=== PATIENT | male | born 1960 | race Caucasian/White ===

== ENCOUNTER 2017-10-02 07:05 | Day surgery (SDC) | payer OTHER ==
[2016-10-20 09:50] VITALS: BMI 22.8
[2017-10-02 08:15] VITALS: O2SAT 100
[2017-10-02] MEDS ORDERED: Propofol 10 mg/ml Inj (20 ML) ONE (09:38)
--- NOTE | 2017-10-02 09:38 | CP.SDSHP ---
Same Day Surgery H & P - History Proposed Procedure: COLONSCOPY Pre-Op Diagnosis: SEE NOTES - Previous Medical/Surgical History Cardiac: Hypertension Endocrine/Metabolic: Diabetes, Other Neuro: Backaches Misc: Other Pain: 2.Mild Pain - Allergies Allergies: Allergies No Known Allergies Allergy (Verified 10/20/16 09:50) - Physical Exam General Appearance: N Vital Signs: Vital Signs 10/02/17 07:45 Temperature 97 F L Pulse Rate 67 Respiratory 19 Rate Blood Pressure 114/71 O2 Sat by Pulse 100 Oximetry Mental Status: Alert & Oriented x3 Neuro: WNL Heart: Other Lungs: WNL GI: WNL - {Optional Preform as Required} Breast: WNL Abdomen: WNL Rectal: WNL Integument: WNL : Other Ortho: Other ENT: WNL - Impression Pt. Evaluated Today:Candidate for Anesthesia & Procedure: Yes - Date & Time Time: 09:39 Short Stay Discharge - Short Stay Discharge Admitting Diagnosis/Reason for Visit: COLON SCREENING Disposition: HOME/ ROUTINE
[2017-10-02] MEDS ORDERED: Lactated Ringer's 500 ML IV SCH (09:45)
[2017-10-02] MEDS ORDERED: Belladonna-Phenobarbital PO ONE (10:15)
[2017-10-02 11:31] VITALS: BP 122/75; PULSE 55; RESP 15; TEMP 97.2
== END 2017-10-02 11:30 | disposition home or self-care (01) ==
LOC: C.ENDO 07:05
PROVIDERS: ATTEND Specialist
DX: K58.9 Irritable bowel syndrome, unspecified (principal); K64.8 Other hemorrhoids
CPT/HCPCS: 45380; 82948; 88305; J2704; J7120

== ENCOUNTER 2018-10-15 19:38 | Emergency (ER) | payer OTHER ==
[2018-10-15 19:38] VITALS: BMI 22.8
[2018-10-15 19:53] VITALS: BP 145/93; PULSE 69; TEMP 97.8; O2SAT 97
--- NOTE | 2018-10-15 21:01 | C.PDOC ---
History Of Present Illness 57 y/o male comes in to ED complaining of pain to right foot s/p fall earlier today. States that he injured his right second toe and has pain and swelling to the area. Denies any weakness, numbness, or other injuries. Time Seen by Provider: 10/15/18 19:53 Chief Complaint (Nursing): Lower Extremity Problem/Injury History Per: Patient History/Exam Limitations: no limitations Onset/Duration Of Symptoms: Hrs Current Symptoms Are (Timing): Still Present Past Medical History Reviewed: Historical Data, Nursing Documentation, Vital Signs Vital Signs: Last Vital Signs Temp 97.8 F 10/15/18 19:50 Pulse 69 10/15/18 19:50 Resp 18 10/15/18 19:50 BP 145/93 H 10/15/18 19:50 Pulse Ox 97 10/15/18 19:50 - Medical History PMH: Hypercholesterolemia Denies: Chronic Kidney Disease Family History: States: No Known Family Hx - Social History Hx Alcohol Use: No Hx Substance Use: No - Immunization History Hx Tetanus Toxoid Vaccination: No Hx Influenza Vaccination: No Hx Pneumococcal Vaccination: No Review Of Systems Except As Marked, All Systems Reviewed And Found Negative. Cardiovascular: Negative for: Chest Pain Respiratory: Negative for: Shortness of Breath Musculoskeletal: Positive for: Foot Pain (R). Negative for: Neck Pain Neurological: Negative for: Weakness, Numbness Physical Exam - Physical Exam Appears: Non-toxic, No Acute Distress Skin: Warm, Dry Head: Atraumatic, Normacephalic Eye(s): bilateral: Normal Inspection, PERRL Oral Mucosa: Moist Neck: Supple Respiratory: Normal Breath Sounds Extremity: Capillary Refill (less than 2 seconds), No Deformity, Other (Ecchymosis, swelling, and tenderness to right second toe; minimal tenderness to right third toe) Pulses: Right Dorsalis Pedis: Normal Neurological/Psych: Oriented x3, Normal Speech, Normal Motor, Normal Sensation Gait: Other (with a limp) ED Course And Treatment O2 Sat by Pulse Oximetry: 97 (RA) Pulse Ox Interpretation: Normal Progress Note: Right foot XR ordered. XR showed fracture of the PIP of second toe. Toes were darshan tapes and patient is placed in an orthopedic shoe for support and will follow up with podiatry for further evaluation. Disposition Counseled Patient/Family Regarding: Diagnosis, Need For Followup, Rx Given - Disposition Referrals: Podiatry Clinic [Outside] Disposition: HOME/ ROUTINE Disposition Time: 20:59 Condition: STABLE Additional Instructions: Leg elevation Apply ICE to area Follow up with PMD/ Podiatry Continue advil for pain Use ortho shoe for support Return to ER if worse Instructions: Toe Fracture (DC) Forms: [employer] (Slovak) - Clinical Impression Clinical Impression: Fracture of toe of right foot - PA / SUPERVISOR W[employer]OUR / Resident Statement MD/DO has reviewed & agrees with the documentation as recorded. - Scribe Statement The provider has reviewed the documentation as recorded by the Scribgail Elizabeth All medical record entries made by the Alanis were at my direction and personally dictated by me. I have reviewed the chart and agree that the record accurately reflects my personal performance of the history, physical exam, medical decision making, and the department course for this patient. I have also personally directed, reviewed, and agree with the discharge instructions and disposition.
[2018-10-15 21:05] VITALS: RESP 20
--- NOTE | 2018-10-16 10:59 | RAD ---
Date of service: 10/15/2018 PROCEDURE: Right Foot Radiographs. HISTORY: 2nd, 3rd toes pain and swelling COMPARISON: None. FINDINGS: BONES: No acute fracture or destructive bony lesion identified. JOINTS: Normal. SOFT TISSUES: Normal. OTHER FINDINGS: None. IMPRESSION: Unremarkable right foot radiographs.
== END 2018-10-15 21:05 | disposition home or self-care (01) ==
LOC: C.ER 19:38
DX: S92.511A Displaced fracture of proximal phalanx of right lesser toe(s), initial encounter for closed fracture (principal); W19.XXXA Unspecified fall, initial encounter; E78.00 Pure hypercholesterolemia, unspecified

== ENCOUNTER 2019-03-08 23:30 | Inpatient (IN) | payer OTHER ==
[2019-03-08 23:31] VITALS: BMI 22.8
--- NOTE | 2019-03-09 00:29 | C.PDOC ---
Time Seen by Provider: 03/09/19 00:21 Chief Complaint (Nursing): Fever Past Medical History Vital Signs: Last Vital Signs Temp 99.7 F H 03/08/19 23:58 Pulse 93 H 03/08/19 23:58 Resp 20 03/08/19 23:58 BP 136/76 03/08/19 23:58 Pulse Ox 95 03/08/19 23:58 Primary Care Provider: Doris Tran - Medical History PMH: Hypercholesterolemia Denies: Chronic Kidney Disease - Social History Hx Alcohol Use: No Hx Substance Use: No - Immunization History Hx Tetanus Toxoid Vaccination: No Hx Influenza Vaccination: Yes Hx Pneumococcal Vaccination: No ED Course And Treatment O2 Sat by Pulse Oximetry: 95 Disposition - Disposition
--- NOTE | 2019-03-09 00:34 | C.PDOC ---
History Of Present Illness Patient presents with fever, generalized body aches and dysuria for the last 36 hours. Pt is on amox for a sinus infection. No cp, palp, tolerating po. Time Seen by Provider: 03/09/19 00:21 Chief Complaint (Nursing): Fever History Per: Patient History/Exam Limitations: no limitations Onset/Duration Of Symptoms: Days Current Symptoms Are (Timing): Still Present Severity: Moderate Pain Scale Rating Of: 4 Reports Recently: Seen In ED, Treated By A Physician Recent travel outside of the [place]: No Additional History Per: Family Past Medical History Reviewed: Historical Data, Nursing Documentation, Vital Signs Vital Signs: Last Vital Signs Temp 99.7 F H 03/08/19 23:58 Pulse 93 H 03/08/19 23:58 Resp 20 03/08/19 23:58 BP 136/76 03/08/19 23:58 Pulse Ox 95 03/08/19 23:58 Primary Care Provider: Doris Tran - Medical History PMH: Hypercholesterolemia Denies: Chronic Kidney Disease Family History: States: No Known Family Hx - Social History Hx Alcohol Use: No Hx Substance Use: No - Immunization History Hx Tetanus Toxoid Vaccination: No Hx Influenza Vaccination: Yes Hx Pneumococcal Vaccination: No Review Of Systems Constitutional: Positive for: Fever, Malaise Cardiovascular: Negative for: Chest Pain Respiratory: Negative for: Shortness of Breath Gastrointestinal: Positive for: Abdominal Pain, Diarrhea. Negative for: Nausea, Vomiting Genitourinary: Positive for: Dysuria Musculoskeletal: Positive for: Back Pain (mild) Skin: Negative for: Rash Neurological: Negative for: Weakness Psych: Negative for: Anxiety Physical Exam - Physical Exam Appears: Non-toxic, Other (moderate distress) Skin: Warm, Dry Eye(s): bilateral: Normal Inspection Oral Mucosa: Dry Neck: Supple Chest: Symmetrical Cardiovascular: Rhythm Regular Respiratory: No Rales, No Rhonchi, No Wheezing Gastrointestinal/Abdominal: Soft, No Tenderness, No Distention Back: CVA Tenderness (mild left), No Vertebral Tenderness Male Genital: No Inguinal Tenderness Extremity: No Tenderness Extremity: Bilateral: Atraumatic Pulses: Left Dorsalis Pedis: Normal, Right Dorsalis Pedis: Normal Neurological/Psych: Oriented x3 Gait: Steady ED Course And Treatment - Laboratory Results Result Diagrams: 03/09/19 00:51 03/09/19 00:51 O2 Sat by Pulse Oximetry: 95 Pulse Ox Interpretation: Normal Disposition Discussed With Dr.: Doris Tran Comment: accepted the pt on his service and took over the care at 2:09 AM Doctor Will See Patient In The: Hospital Counseled Patient/Family Regarding: Studies Performed, Diagnosis - Disposition Disposition: HOSPITALIZED Disposition Time: 00:31 Condition: FAIR Forms: [facility] (Stateless) - POA Present On Arrival: Poor Glycemic Control - Clinical Impression Clinical Impression: Fever, Pyelonephritis Decision To Admit - Pt Status Changed To: Hospital Disposition Of: Observation - . Bed Request Type: Regular Admitting Physician: Doris Tran Patient Diagnosis: Fever, Pyelonephritis
[2019-03-09] MEDS: Sodium Chloride 0.9% 1,000 ML IV SCH ×4 (00:48→20:30)
[2019-03-09 00:55] LABS: BASO # 0.1 K/uL (0.0-0.2); BASO % 0.5 % (0.0-2.0); EOS # 0.1 K/uL (0.0-0.7); HEMOGLOBIN 13.5 g/dL (12.0-18.0); LYMPH # 0.7 K/uL (1.0-4.3); LYMPH % 6.5 % (20.0-40.0); MEAN CELL VOLUME 89.7 fL (80.0-94.0); MEAN CORPUSCULAR HEMOGLOBIN 30.7 pg (27.0-31.0); MEAN CORPUSCULAR HGB CONC 34.3 g/dL (33.0-37.0); MEAN PLATELET VOLUME 8.1 fL (7.2-11.7); MONO # 0.9 K/uL (0.0-0.8); MONO % 9.2 % (0.0-10.0); NEUT # 8.4 K/uL (1.8-7.0); NEUT % 82.8 % (50.0-75.0); PLATELET COUNT 275 K/uL (130-400); RBC 4.38 Mil/uL (4.40-5.90); RED CELL DISTRIBUTION WIDTH 13.5 % (11.5-14.5); WHITE BLOOD COUNT 10.2 K/uL (4.8-10.8)
[2019-03-09 01:01] LABS: URINE BILIRUBIN NEGATIVE (NEGATIVE); URINE BLOOD 2+ (NEGATIVE); URINE CLARITY Clear (Clear); URINE COLOR Straw (YELLOW); URINE GLUCOSE (UA) 3+ mg/dL (Normal); URINE LEUKOCYTE ESTERASE 1+ Leu/uL (Negative); URINE PROTEIN NEGATIVE (NEGATIVE); URINE UROBILINOGEN NORMAL mg/dL (0.2-1.0)
[2019-03-09 01:10] LABS: VENOUS BLOOD GAS BASE EXCESS -0.6 mmol/L (0.0-2.0); VENOUS BLOOD GAS PCO2 35 mmHg (40-60); VENOUS BLOOD GAS PO2 74 mm/Hg (30-55); VENOUS BLOOD PH 7.43 (7.32-7.43)
[2019-03-09] MEDS ORDERED: Sodium Chloride 0.9% 2,000 ML IV ONE (01:10)
[2019-03-09] MEDS ORDERED: cefTRIAXone IV 1 gm in Dextros 50 ML IVPB ONE (01:10)
[2019-03-09 01:14] LABS: ALB/GLOB RATIO 1.5 (1.0-2.1); ALBUMIN 4.1 g/dL (3.5-5.0); ALT/SGPT 50 U/L (21-72); AST/SGOT 56 U/L (17-59); BLOOD UREA NITROGEN 9 mg/dL (9-20); CALCIUM 9.4 mg/dl (8.6-10.4); GFR NON-AFRICAN AMERICAN > 60
[2019-03-09 01:56] LABS: EOSINOPHIL 2 % (0-4); LYMPHOCYTE 5 % (20-40); MONOCYTE 8 % (0-10); NEUTROPHIL 83 % (50-75); PLATELET ESTIMATE NORMAL (NORMAL); REACTIVE LYMPHOCYTES 2 % (0-0); TOTAL CELLS COUNTED 100
--- NOTE | 2019-03-09 09:38 | CP.PCM.HP ---
"<Basim Mercado - Last Filed: 03/09/19 17:35> History of Present Illness - History of Present Illness History of Present Illness: 58 year old male with a past medical history of diabetes, hypertension and bph presents to the hospital after reporting a fever since last Sunday. Patient states the Tmax was 102F while at home. Patient also reports body aches with nasal congestion in conjunction with the symptoms. Patient has history of Sinusitis and recently completed a course of antibiotics for the infection. Patient also reports dysuria for the past couple of days as well. Patient denies any recent travel, nausea, vomiting, syncopal episodes, palpitations, chest pain, or any other complaints. PMD: Marc Medical history: dm, htn, bph Allergies: Denies Surgical history: Sinus surgery Social history: Denies etoh or tobacco use. Denies illicit drug use Present on Admission - Present on Admission Any Indicators Present on Admission: No Review of Systems - Constitutional Constitutional: Headache. absent: Daytime Sleepiness, Frequent Falls, Night Sweats, Weakness - EENT Eyes: absent: Blurred Vision, Discharge Ears: absent: Ear Discharge, Dizziness Nose/Mouth/Throat: Nasal Congestion, Nasal Discharge. absent: Nose Pain, Bleeding Gums, Halitosis, Mouth Pain - Cardiovascular Cardiovascular: absent: Chest Pain, Claudication, Irregular Heart Rhythm, Leg Edema, Palpitations, Slow Heart Rate, Syncope - Respiratory Respiratory: absent: Cough, Dyspnea, Snoring - Gastrointestinal Gastrointestinal: absent: Belching, Bloating, Dyspepsia, Dysphagia, Melena, Nausea - Genitourinary Genitourinary: absent: Change in Urinary Stream, Pyuria, Nocturia, Freq UTI - Integumentary Integumentary: absent: Pruritus, Rash, Sores, Striae, Swelling - Neurological Neurological: absent: Syncope, Tremor, Vertigo, Weakness - Psychiatric Psychiatric: absent: Depression, Panic Attacks - Endocrine Endocrine: absent: Increase in Ring/Shoe/Hat Size, Polydipsia, Polyphagia, Polyuria - Hematologic/Lymphatic Hematologic: absent: Easy Bleeding, Easy Bruising Past Patient History - Past Medical History & Family History Past Medical History?: Yes - Past Social History Smoking Status: Never Smoked - CARDIAC Hx Hypercholesterolemia: Yes - PULMONARY Hx Respiratory Disorders: No - NEUROLOGICAL Hx Neurological Disorder: No - HEENT Hx HEENT Problems: Yes - RENAL Hx Chronic Kidney Disease: No - ENDOCRINE/METABOLIC Hx Endocrine Disorders: Yes Hx Diabetes Mellitus Type 1: Yes - HEMATOLOGICAL/ONCOLOGICAL Hx Blood Disorders: No - INTEGUMENTARY Hx Dermatological Problems: No - MUSCULOSKELETAL/RHEUMATOLOGICAL Hx Musculoskeletal Disorders: Yes Hx Herniated Disk: Yes (L4 L5) - GASTROINTESTINAL Hx Gastrointestinal Disorders: No - GENITOURINARY/GYNECOLOGICAL Hx Genitourinary Disorders: Yes Hx Prostate Problems: Yes (BPH) - PSYCHIATRIC Hx Substance Use: No - SURGICAL HISTORY Hx Surgeries: Yes Other/Comment: ENT 2011 - ANESTHESIA Hx Anesthesia: Yes Hx Anesthesia Reactions: No Hx Malignant Hyperthermia: No Meds Allergies/Adverse Reactions: Allergies Allergy/AdvReac Type Severity Reaction Status Date / Time No Known Allergies Allergy Verified 10/15/18 19:48 Physical Exam - Head Exam Head Exam: ATRAUMATIC, NORMAL INSPECTION - Eye Exam Eye Exam: EOMI, Normal appearance, PERRL. absent: Periorbital tenderness Pupil Exam: NORMAL ACCOMODATION, PERRL. absent: Irregular, Unequal - ENT Exam ENT Exam: Mucous Membranes Moist, Normal Oropharynx - Neck Exam Neck exam: Positive for: Normal Inspection. Negative for: Lymphadenopathy, Thyromegaly - Respiratory Exam Respiratory Exam: Clear to Auscultation Bilateral, NORMAL BREATHING PATTERN. absent: Prolonged Expiratory Phase, Respiratory Distress - Cardiovascular Exam Cardiovascular Exam: REGULAR RHYTHM, RRR, +S1, +S2. absent: Rubs - GI/Abdominal Exam GI & Abdominal Exam: Normal Bowel Sounds, Soft. absent: Organomegaly, Tenderness - Extremities Exam Extremities exam: Positive for: normal inspection. Negative for: full ROM, joint swelling, pedal edema - Back Exam Back exam: NORMAL INSPECTION. absent: CVA tenderness (R), paraspinal tenderness - Neurological Exam Neurological exam: Alert, CN II-XII Intact, Oriented x3 - Psychiatric Exam Psychiatric exam: Normal Affect, Normal Mood - Skin Skin Exam: Dry, Intact, Normal Color - Additional Findings Additional findings: Maxillary tenderness to palpation Results - Vital Signs Recent Vital Signs: Last Vital Signs Temp 98.8 F 03/09/19 02:58 Pulse 71 03/09/19 02:58 Resp 20 03/09/19 02:58 BP 131/77 03/09/19 02:58 Pulse Ox 97 03/09/19 02:58 - Labs Result Diagrams: 03/09/19 00:51 03/09/19 00:51 Labs: Laboratory Results - last 24 hr 03/09/19 03/09/19 03/09/19 00:08 00:51 00:51 WBC 10.2 RBC 4.38 L Hgb 13.5 Hct 39.3 MCV 89.7 MCH 30.7 MCHC 34.3 RDW 13.5 Plt Count 275 MPV 8.1 Neut % (Auto) 82.8 H Lymph % (Auto) 6.5 L Teller % (Auto) 9.2 Eos % (Auto) 1.0 Baso % (Auto) 0.5 Neut # (Auto) 8.4 H Lymph # (Auto) 0.7 L Teller # (Auto) 0.9 H Eos # (Auto) 0.1 Baso # (Auto) 0.1 Neutrophils % (Manual) 83 H Lymphocytes % (Manual) 5 L Reactive Lymphs % 2 H Monocytes % (Manual) 8 Eosinophils % (Manual) 2 Platelet Estimate Normal pO2 VBG pH VBG pCO2 VBG HCO3 VBG Total CO2 VBG O2 Sat (Calc) VBG Base Excess VBG Potassium Glucose Lactate Sodium Potassium Chloride Carbon Dioxide Anion Gap BUN Creatinine Est GFR ( Amer) Est GFR (Non-Af Amer) POC Glucose (mg/dL) 279 H Random Glucose Calcium Total Bilirubin AST ALT Alkaline Phosphatase Total Protein Albumin Globulin Albumin/Globulin Ratio Venous Blood Potassium Urine Color Straw Urine Clarity Clear Urine pH 6.0 Ur Specific [place] 1.007 Urine Protein Negative Urine Glucose (UA) 3+ H Urine Ketones Negative Urine Blood 2+ H Urine Nitrate Negative Urine Bilirubin Negative Urine Urobilinogen Normal Ur Leukocyte Esterase 1+ H Urine WBC (Auto) 14 H Urine RBC (Auto) 3 03/09/19 03/09/19 03/09/19 00:51 01:05 06:47 WBC RBC Hgb Hct MCV MCH MCHC RDW Plt Count MPV Neut % (Auto) Lymph % (Auto) Teller % (Auto) Eos % (Auto) Baso % (Auto) Neut # (Auto) Lymph # (Auto) Teller # (Auto) Eos # (Auto) Baso # (Auto) Neutrophils % (Manual) Lymphocytes % (Manual) Reactive Lymphs % Monocytes % (Manual) Eosinophils % (Manual) Platelet Estimate pO2 74 H VBG pH 7.43 VBG pCO2 35 L VBG HCO3 24.4 VBG Total CO2 24.3 VBG O2 Sat (Calc) 97.6 H VBG Base Excess -0.6 L VBG Potassium 3.7 Glucose 268 H Lactate 2.7 H Sodium 135 135.0 Potassium 4.1 Chloride 99 101.0 Carbon Dioxide 22 Anion Gap 18 BUN 9 Creatinine 0.7 L Est GFR ( Amer) > 60 Est GFR (Non-Af Amer) > 60 POC Glucose (mg/dL) 183 H Random Glucose 276 H Calcium 9.4 Total Bilirubin 0.4 AST 56 ALT 50 Alkaline Phosphatase 102 Total Protein 6.9 Albumin 4.1 Globulin 2.7 Albumin/Globulin Ratio 1.5 Venous Blood Potassium 3.7 Urine Color Urine Clarity Urine pH Ur Specific [place] Urine Protein Urine Glucose (UA) Urine Ketones Urine Blood Urine Nitrate Urine Bilirubin Urine Urobilinogen Ur Leukocyte Esterase Urine WBC (Auto) Urine RBC (Auto) Assessment & Plan - Assessment and Plan (Free Text) Assessment: 58 year old male with a past medical history of diabetes, hypertension and bph presents to the hospital after reporting a fever since last Sunday. Plan: 1.Pyelonephritis U/A on admission: 2+Blood| 1+Leukocyte esterase |14 WBC Medications: Rocephin 1gm IVP DAILY Acetaminophen 650mg PO Q6 PRN 2.hx of Hypertension -Continue Losartan 50mg PO DAILY 3.hx of Diabetes -Hold home medications -ISS -Accuchecks ACHS 4.BPH -Continue Flomax .4mg PO DAILY -Continue Proscar 5MG po daily 5.Painless hematuria -Abdomen/pelvis ordered. Will f/u with results -Urology Dr. Anastacio West ordered--> Help appreciated. PPX Heparin ci | SCD's Plan discussed with Attending Dr. Esteban Mercado, PGY2 <Radha Orellana - Last Filed: 03/10/19 18:46> Results - Vital Signs Recent Vital Signs: Last Vital Signs Temp 98.7 F 03/10/19 15:00 Pulse 74 03/10/19 15:00 Resp 20 03/10/19 15:00 BP 146/80 03/10/19 15:00 Pulse Ox 97 03/10/19 15:00 - Labs Result Diagrams: 03/10/19 08:07 03/10/19 08:07 Labs: Laboratory Results - last 24 hr 03/09/19 03/10/19 03/10/19 21:38 06:29 08:07 WBC 7.3 RBC 4.24 L Hgb 13.2 Hct 37.4 MCV 88.2 MCH 31.0 MCHC 35.1 RDW 13.2 Plt Count 316 MPV 7.9 Neut % (Auto) 75.2 H Lymph % (Auto) 10.9 L Teller % (Auto) 11.9 H Eos % (Auto) 1.7 Baso % (Auto) 0.3 Neut # (Auto) 5.5 Lymph # (Auto) 0.8 L Teller # (Auto) 0.9 H Eos # (Auto) 0.1 Baso # (Auto) 0.0 Sodium Potassium Chloride Carbon Dioxide Anion Gap BUN Creatinine Est GFR ( Amer) Est GFR (Non-Af Amer) POC Glucose (mg/dL) 256 H 215 H Random Glucose Calcium Phosphorus Magnesium Total Bilirubin AST ALT Alkaline Phosphatase Total Protein Albumin Globulin Albumin/Globulin Ratio Urine Color Urine Clarity Urine pH Ur Specific [place] Urine Protein Urine Glucose (UA) Urine Ketones Urine Blood Urine Nitrate Urine Bilirubin Urine Urobilinogen Ur Leukocyte Esterase Urine WBC (Auto) Urine RBC (Auto) Urine Bacteria 03/10/19 03/10/19 03/10/19 08:07 11:47 13:51 WBC RBC Hgb Hct MCV MCH MCHC RDW Plt Count MPV Neut % (Auto) Lymph % (Auto) Teller % (Auto) Eos % (Auto) Baso % (Auto) Neut # (Auto) Lymph # (Auto) Teller # (Auto) Eos # (Auto) Baso # (Auto) Sodium 136 Potassium 3.4 L Chloride 100 Carbon Dioxide 26 Anion Gap 13 BUN 6 L Creatinine 0.7 L Est GFR ( Amer) > 60 Est GFR (Non-Af Amer) > 60 POC Glucose (mg/dL) 211 H Random Glucose 204 H D Calcium 8.8 Phosphorus 2.8 Magnesium 1.8 Total Bilirubin 0.4 AST 28 ALT 41 Alkaline Phosphatase 82 Total Protein 6.8 Albumin 3.7 Globulin 3.1 Albumin/Globulin Ratio 1.2 Urine Color Yellow Urine Clarity Clear Urine pH 6.0 Ur Specific [place] 1.008 Urine Protein Negative Urine Glucose (UA) 1+ H Urine Ketones Negative Urine Blood 2+ H Urine Nitrate Negative Urine Bilirubin Negative Urine Urobilinogen Normal Ur Leukocyte Esterase Neg Urine WBC (Auto) 2 Urine RBC (Auto) 4 H Urine Bacteria Rare 03/10/19 16:39 WBC RBC Hgb Hct MCV MCH MCHC RDW Plt Count MPV Neut % (Auto) Lymph % (Auto) Teller % (Auto) Eos % (Auto) Baso % (Auto) Neut # (Auto) Lymph # (Auto) Teller # (Auto) Eos # (Auto) Baso # (Auto) Sodium Potassium Chloride Carbon Dioxide Anion Gap BUN Creatinine Est GFR ( Amer) Est GFR (Non-Af Amer) POC Glucose (mg/dL) 216 H Random Glucose Calcium Phosphorus Magnesium Total Bilirubin AST ALT Alkaline Phosphatase Total Protein Albumin Globulin Albumin/Globulin Ratio Urine Color Urine Clarity Urine pH Ur Specific [place] Urine Protein Urine Glucose (UA) Urine Ketones Urine Blood Urine Nitrate Urine Bilirubin Urine Urobilinogen Ur Leukocyte Esterase Urine WBC (Auto) Urine RBC (Auto) Urine Bacteria Attending/Attestation - Attestation I have personally seen and examined this patient.: Yes I have fully participated in the care of the patient.: Yes I have reviewed all pertinent clinical information: Yes Notes (Text): 1.Fever monitor tem,do cultures 2.Flank pain radiates to groin possible UTI/Pyelo 3.Painless hematuria r/o kidney stone,do CT abdomen and pelvis 3.Chronic sinusitis 4.BPH 5.DM 6HTN"
[2019-03-09] MEDS ORDERED: Glucagon Recombinant 1 mg Inj IM PRN (09:39)
[2019-03-09] MEDS ORDERED: Dextrose 50% SYRINGE Inj (50 ml) IV PRN (09:39)
[2019-03-09] MEDS: (Novolin R) Insulin Human Regular 100 units/ml vial SC SCH ×3 (11:33→22:17)
--- NOTE | 2019-03-09 15:33 | CT ---
Date of service: 03/09/2019 PROCEDURE: CT Abdomen and Pelvis without intravenous contrast HISTORY: painless hematuria COMPARISON: None. TECHNIQUE: Axial and reformatted coronal and sagittal CT images of the abdomen and pelvis were obtained without IV or oral contrast administration.. Contrast dose: 0 Radiation dose: Total exam DLP = 306.63 mGy-cm. This CT exam was performed using one or more of the following dose reduction techniques: Automated exposure control, adjustment of the mA and/or kV according to patient size, and/or use of iterative reconstruction technique. FINDINGS: LOWER THORAX: No evidence of acute pathology LIVER: Mild hepatomegaly is noted. GALLBLADDER AND BILE DUCTS: Unremarkable. PANCREAS: Unremarkable. No gross lesion or ductal dilatation. SPLEEN: Unremarkable. ADRENALS: There is 2.1 centimeter slightly heterogeneous low-attenuation solid nodule at the left adrenal gland may represent incidental adenoma. KIDNEYS AND URETERS: Unremarkable. No hydronephrosis. No solid mass. VASCULATURE: Unremarkable. No aortic aneurysm. No aortic atherosclerotic calcification or mural plaque present. BOWEL: Unremarkable. No obstruction. No gross mural thickening. APPENDIX: No evidence of appendicitis. PERITONEUM: Unremarkable. No free fluid. No free air. LYMPH NODES: Unremarkable. No enlarged lymph nodes. BLADDER: [id number] circumferential urinary bladder wall thickening is noted. REPRODUCTIVE: The prostate is moderately enlarged. BONES: No acute fracture. OTHER FINDINGS: None. IMPRESSION: No evidence of nephrolithiasis or hydronephrosis. Mild to moderate circumferential urinary bladder wall thickening. Moderately enlarged prostate. 2.1 centimeter low-attenuation nodule/mass at the left adrenal gland may represent incidental adenoma. If indicated further evaluation by MRI may be obtained.
[2019-03-09] MEDS ORDERED: Home Med 1 UNIT PO PRN (20:02)
--- NOTE | 2019-03-09 20:03 | CP.PCM.PCO ---
Addendum Addendum: 03/09/19 20:02 Pt taking home med: Tylenol sinus Headache OK for use while inpatient [facility] PGY1
[2019-03-09] MEDS: guaiFENesin 600 mg ER Tab PO SCH (21:18)
[2019-03-10 08:24] LABS: BASO % 0.3 % (0.0-2.0); EOS # 0.1 K/uL (0.0-0.7); EOS % 1.7 % (0.0-4.0); HEMOGLOBIN 13.2 g/dL (12.0-18.0); LYMPH # 0.8 K/uL (1.0-4.3); LYMPH % 10.9 % (20.0-40.0); MEAN CELL VOLUME 88.2 fL (80.0-94.0); MEAN CORPUSCULAR HGB CONC 35.1 g/dL (33.0-37.0); MEAN PLATELET VOLUME 7.9 fL (7.2-11.7); MONO # 0.9 K/uL (0.0-0.8); MONO % 11.9 % (0.0-10.0); NEUT # 5.5 K/uL (1.8-7.0); NEUT % 75.2 % (50.0-75.0); RBC 4.24 Mil/uL (4.40-5.90); RED CELL DISTRIBUTION WIDTH 13.2 % (11.5-14.5); WHITE BLOOD COUNT 7.3 K/uL (4.8-10.8)
[2019-03-10] MEDS: (Novolin R) Insulin Human Regular 100 units/ml vial SC SCH ×4 (08:25→21:10)
--- NOTE | 2019-03-10 08:29 | CP.PCM.PN ---
Subjective - Date & Time of Evaluation Date of Evaluation: 03/10/19 Time of Evaluation: 08:29 Objective - Vital Signs/Intake and Output Vital Signs (last 24 hours): Temp Pulse Resp BP Pulse Ox 99.5 F 71 20 160/81 H 95 03/09/19 23:25 03/09/19 23:25 03/09/19 23:25 03/09/19 23:25 03/09/19 23:25 Intake and Output: 03/10/19 03/10/19 06:59 18:59 Intake Total 1950 Balance 1950 - Medications Medications: Current Medications Acetaminophen (Tylenol 325mg Tab) 650 mg PO Q6 PRN PRN Reason: Headache Last Admin: 03/09/19 21:16 Dose: 650 mg Dextrose (Dextrose 50% Inj) 0 ml IV STAT PRN; Protocol PRN Reason: Hypoglycemia Protocol Dextrose (Glutose 15) 0 gm PO ONCE PRN; Protocol PRN Reason: Hypoglycemia Protocol Finasteride (Proscar) 5 mg PO DAILY [facility] Glucagon (Glucagen Diagnostic Kit) 0 mg IM STAT PRN; Protocol PRN Reason: Hypoglycemia Protocol Guaifenesin (Mucinex La) 600 mg PO BID [facility] Last Admin: 03/09/19 21:18 Dose: 600 mg Sodium Chloride (Sodium Chloride 0.9%) 1,000 mls @ 100 mls/hr IV .Q10H [facility] Last Admin: 03/09/19 20:30 Dose: Not Given Ceftriaxone Sodium 1 gm/ (Sodium Chloride) 100 mls @ 100 mls/hr IVPB DAILY [facility]; Protocol Last Admin: 03/09/19 10:50 Dose: 100 mls/hr Dextrose (Dextrose 5% In Water 1000 Ml) 1,000 mls @ 0 mls/hr IV .Q0M PRN; Protocol PRN Reason: Hypoglycemia Protocol Insulin Human Regular (Novolin R) 0 unit SC ACHS [facility]; Protocol Last Admin: 03/10/19 08:25 Dose: 2 units Losartan Potassium (Cozaar) 25 mg PO DAILY [facility] Last Admin: 03/09/19 10:49 Dose: 25 mg Pneumococcal Polyvalent Vaccine (Pneumovax 23 Vaccine) 0.5 ml IM .ONCE ONE Stop: 03/11/19 10:01 Pseudoephedrine HCl (Sudafed Tab) 30 mg PO HS PRN PRN Reason: Headache Last Admin: 03/09/19 21:18 Dose: 30 mg Tamsulosin HCl (Flomax) 0.4 mg PO DAILY [facility] Last Admin: 03/09/19 09:45 Dose: 0.4 mg - Labs Labs: 03/10/19 08:07 03/09/19 00:51 APTT 29.7 SECONDS (21-34) 03/09/19 13:36
[2019-03-10 08:57] LABS: ALB/GLOB RATIO 1.2 (1.0-2.1); ALBUMIN 3.7 g/dL (3.5-5.0); ALT/SGPT 41 U/L (21-72); AST/SGOT 28 U/L (17-59); BLOOD UREA NITROGEN 6 mg/dL (9-20); CALCIUM 8.8 mg/dl (8.6-10.4); GFR NON-AFRICAN AMERICAN > 60
[2019-03-10] MEDS: guaiFENesin 600 mg ER Tab PO SCH ×2 (09:36→17:13)
[2019-03-10] MEDS ORDERED: Moxifloxacin IV 400mg/250ml NS 400 MG/250 ML BAG IVPB SCH (12:15)
[2019-03-10] MEDS ORDERED: Potassium Chloride 20 mEq ER Tab PO ONE (13:00)
[2019-03-10 14:02] LABS: URINE BACTERIA RARE (<OCC); URINE BILIRUBIN NEGATIVE (NEGATIVE); URINE BLOOD 2+ (NEGATIVE); URINE CLARITY Clear (Clear); URINE COLOR Yellow (YELLOW); URINE GLUCOSE (UA) 1+ mg/dL (Normal); URINE LEUKOCYTE ESTERASE NEG Leu/uL (Negative); URINE PROTEIN NEGATIVE (NEGATIVE); URINE UROBILINOGEN NORMAL mg/dL (0.2-1.0)
[2019-03-10] MEDS: Sodium Chloride 0.9% 1,000 ML IV SCH ×3 (14:04→16:30)
--- NOTE | 2019-03-10 15:41 | CP.PCM.PN ---
"Subjective - Date & Time of Evaluation Date of Evaluation: 03/10/19 Time of Evaluation: 16:00 - Subjective Subjective: Seen and examined this afternoon. His main concer today afternoon is left groin pain radiates to his left scrotum and left scrotal tenderness His sinus pain is better,c/o Dysuria,last night fever. Objective - Vital Signs/Intake and Output Vital Signs (last 24 hours): Temp Pulse Resp BP Pulse Ox 99.1 F 82 20 155/85 H 95 03/10/19 08:36 03/10/19 08:36 03/10/19 08:36 03/10/19 08:36 03/10/19 08:36 Intake and Output: 03/10/19 03/10/19 06:59 18:59 Intake Total 1950 830 Balance 1950 830 - Medications Medications: Current Medications Acetaminophen (Tylenol 325mg Tab) 650 mg PO Q6 PRN PRN Reason: Headache Last Admin: 03/10/19 09:40 Dose: 650 mg Dextrose (Dextrose 50% Inj) 0 ml IV STAT PRN; Protocol PRN Reason: Hypoglycemia Protocol Dextrose (Glutose 15) 0 gm PO ONCE PRN; Protocol PRN Reason: Hypoglycemia Protocol Finasteride (Proscar) 5 mg PO DAILY [facility] Last Admin: 03/10/19 09:36 Dose: 5 mg Glucagon (Glucagen Diagnostic Kit) 0 mg IM STAT PRN; Protocol PRN Reason: Hypoglycemia Protocol Guaifenesin (Mucinex La) 600 mg PO BID [facility] Last Admin: 03/10/19 09:36 Dose: 600 mg Sodium Chloride (Sodium Chloride 0.9%) 1,000 mls @ 100 mls/hr IV .Q10H [facility] Last Admin: 03/10/19 14:18 Dose: Not Given Dextrose (Dextrose 5% In Water 1000 Ml) 1,000 mls @ 0 mls/hr IV .Q0M PRN; Protocol PRN Reason: Hypoglycemia Protocol Moxifloxacin HCl (Avelox Iv 400mg/250ml Ns) 400 mg in 250 mls @ 167 mls/hr IVPB Q24H [facility]; Protocol Last Admin: 03/10/19 14:01 Dose: 167 mls/hr Insulin Human Regular (Novolin R) 0 unit SC ACHS [facility]; Protocol Last Admin: 03/10/19 12:34 Dose: 2 units Losartan Potassium (Cozaar) 25 mg PO DAILY [facility] Last Admin: 03/10/19 09:37 Dose: 25 mg Pneumococcal Polyvalent Vaccine (Pneumovax 23 Vaccine) 0.5 ml IM .ONCE ONE Stop: 03/11/19 10:01 Pseudoephedrine HCl (Sudafed Tab) 30 mg PO Q6 PRN PRN Reason: Headache Tamsulosin HCl (Flomax) 0.4 mg PO DAILY [facility] Last Admin: 03/10/19 09:36 Dose: 0.4 mg - Labs Labs: 03/10/19 08:07 03/10/19 08:07 APTT 29.7 SECONDS (21-34) 03/09/19 13:36 - Constitutional Appears: Non-toxic, No Acute Distress - Head Exam Head Exam: NORMAL INSPECTION - Eye Exam Eye Exam: Normal appearance - ENT Exam ENT Exam: Mucous Membranes Moist - Neck Exam Neck Exam: Full ROM - Respiratory Exam Respiratory Exam: Clear to Ausculation Bilateral, NORMAL BREATHING PATTERN - Cardiovascular Exam Cardiovascular Exam: REGULAR RHYTHM - GI/Abdominal Exam GI & Abdominal Exam: Soft, Normal Bowel Sounds - Exam Exam: Testicular Tenderness. absent: Uretheral Discharge, Bladder Distension - Extremities Exam Extremities Exam: Full ROM - Back Exam Back Exam: NORMAL INSPECTION - Neurological Exam Neurological Exam: Awake, Oriented x3 - Psychiatric Exam Psychiatric exam: Normal Mood - Skin Skin Exam: Dry, Intact Assessment and Plan - Assessment and Plan (Free Text) Assessment: 58 year old male with a past medical history of diabetes, hypertension and bph presents to the hospital after reporting a fever since last Sunday. He was complaining of dysuria and sinus trouble on admission. Patient was started on ceftriaxone .urine culture was taken. patient had sinus trouble for a long time with history of allergies. Had sinus surgery by DR Mace as year ago. He also follows urologist Dr Eastuded out pt. His urine culture is negative for significant colony count.UA without nitrates one plus Leukocyte esterase. patient had fever spike last night and blood culture was drawn. His sinus trouble is better. Today he is complaining of left srotal pain,pain radiating from groin to his scrotum and also complaining of dysuria. Has left scrotal tenderness on palpation,no significant swelling on exam Plan: 1.Fever Unlikey from UTI, Possible acute on chronic sinusitis or due to acute epididymitis Patient has hematuria-CT abdpelvis without acute pathology except bladder wall thickening U/A on admission: 2+Blood| 1+Leukocyte esterase |14 WBC Rocephin 1gm IVP DAILY d/c today and started on avelox Acetaminophen 650mg PO Q6 PRN patient's urologist was consulted Dr Puri . 2.Acute Epididymitis/left scrotal pain no signs of torsion or tumor,likely Epididymitis pain meds,follow blood culture,continue avelox 3.Sinusitis follow CT sinus,continue Avelox ENT consult pending 4.hx of Hypertension -Continue Losartan 50mg PO DAILY 5.hx of Diabetes -Hold home medications -ISS -Accuchecks ACHS 6.BPH -Continue Flomax .4mg PO DAILY -Continue Proscar 5MG po daily 7.Herpetic lesion zovirex topical 7.Painless hematuria Urologist on board. Dr Puri. He did went through this pt's records and recommend to follow him out patient after discharge"
[2019-03-10] MEDS: Potassium Chloride 20 mEq ER Tab PO SCH (17:13)
[2019-03-10] MEDS: Acyclovir 5% Oint (15 gm) EXT SCH ×2 (17:14→19:13)
--- NOTE | 2019-03-10 17:57 | CT ---
Date of service: 03/10/2019 PROCEDURE: CT SINUSES WITHOUT CONTRAST HISTORY: s/p sinus surgery, hx sinusitis, headache COMPARISON: None available. TECHNIQUE: Contiguous axial CT images of the paranasal sinuses were obtained. Coronal and sagittal reformats were generated. Radiation dose: Total exam DLP = 680.39 mGy-cm. This CT exam was performed using one or more of the following dose reduction techniques: Automated exposure control, adjustment of the mA and/or kV according to patient size, and/or use of iterative reconstruction technique. FINDINGS: FRONTAL SINUSES: No evidence of significant mucosal thickening. ETHMOID SINUSES: Mild mucosal thickening noted. SPHENOID SINUSES: Mild mucosal thickening noted MAXILLARY SINUSES: Mild mucosal thickening more prominent on the left side. There is mucosal retention cyst in the left maxillary sinus measures 1.4 x 0.9 centimeter. The patient is status post bilateral maxillary sinus surgery. SINUS DRAINAGE: Osteomeatal complexes, frontal recesses and sphenoethmoid recesses clear. NASAL SEPTUM: No significant deviation. No destructive lesion. There are bilateral gail bullosa seen. MASS: None. SKULL BASE: Unremarkable. TEMPORAL BONES: Middle ears and mastoid grossly unremarkable. OTHER FINDINGS: None. IMPRESSION: Mild sinuses mucosal thickening. No evidence of air-fluid level in the sinuses. Post surgical changes suggestive of prior sinusitis surgery.
--- NOTE | 2019-03-10 19:25 | US ---
Date of service: 03/10/2019 HISTORY: left testicular pain TECHNIQUE: Realtime sonography through the scrotum with color and doppler flow. COMPARISON: None Available. FINDINGS: RIGHT TESTICLE: Measures 5 x 2.7 x 2.7 cm. Normal echotexture and flow. RIGHT EPIDIDYMIS: Epididymal head measures 0.8 x 1 x 1 cm. Grossly unremarkable appearance with normal flow. LEFT TESTICLE: Measures 5 x 3 x 3.2 cm. Heterogeneous echotexture and hyperemia noted in the left testicle. LEFT EPIDIDYMIS: Epididymal head measures 2.2 x 1.2 x 3.4 cm. Diffuse enlargement of left epididymis noted. There is 0.3 x 0.4 centimeter cyst left epididymal head. There is hyperemia noted in the left epididymis. HYDROCELE: Moderate to large amount of left-sided hydrocele noted. There is also small to moderate complex right hydrocele is seen. VARICOCELE: Mild left-sided varicocele. OTHER FINDINGS: There are bilateral tubular ectasia of rete testis noted. IMPRESSION: Complex bilateral hydroceles. Mild enlargement of left epididymis and hyperemia noted in the left epididymis and left testicle. Findings suspicious for orchitis epididymitis. Mild left-sided varicocele . bilateral tubular ectasia of rete testis.
[2019-03-10] MEDS ORDERED: (Lantus) Insulin Glargine, Recombinant SC ONE (19:50)
[2019-03-10] MEDS: Ciprofloxacin 400mg/200ml D5W 400 MG/200 ML BAG IVPB SCH (20:16)
[2019-03-11] MEDS: Acyclovir 5% Oint (15 gm) EXT SCH ×9 (00:12→22:17)
[2019-03-11] MEDS: Sodium Chloride 0.9% 1,000 ML IV SCH ×3 (02:31→19:53)
[2019-03-11 07:19] LABS: BASO % 0.5 % (0.0-2.0); EOS # 0.2 K/uL (0.0-0.7); EOS % 3.8 % (0.0-4.0); HEMOGLOBIN 12.4 g/dL (12.0-18.0); MEAN CELL VOLUME 86.8 fL (80.0-94.0); MEAN CORPUSCULAR HEMOGLOBIN 30.6 pg (27.0-31.0); MEAN CORPUSCULAR HGB CONC 35.3 g/dL (33.0-37.0); MEAN PLATELET VOLUME 7.5 fL (7.2-11.7); MONO # 0.9 K/uL (0.0-0.8); MONO % 15.8 % (0.0-10.0); NEUT # 3.8 K/uL (1.8-7.0); NEUT % 62.9 % (50.0-75.0); NRBC % 0.1 % (0.0-2.0); RBC 4.04 Mil/uL (4.40-5.90); RED CELL DISTRIBUTION WIDTH 12.9 % (11.5-14.5)
[2019-03-11 07:39] LABS: ALB/GLOB RATIO 1.3 (1.0-2.1); ALBUMIN 3.4 g/dL (3.5-5.0); ALT/SGPT 39 U/L (21-72); AST/SGOT 29 U/L (17-59); BLOOD UREA NITROGEN 6 mg/dL (9-20); CALCIUM 8.2 mg/dl (8.6-10.4); GFR NON-AFRICAN AMERICAN > 60
[2019-03-11] MEDS: (Novolin R) Insulin Human Regular 100 units/ml vial SC SCH ×4 (07:51→22:07)
[2019-03-11] MEDS: Ciprofloxacin 400mg/200ml D5W 400 MG/200 ML BAG IVPB SCH ×2 (08:03→19:51)
--- NOTE | 2019-03-11 08:25 | CP.PCM.PN ---
<To Lauren - Last Filed: 03/11/19 14:06> Subjective - Date & Time of Evaluation Date of Evaluation: 03/11/19 Time of Evaluation: 10:00 - Subjective Subjective: PGY1 Medicine progress note for Dr. May covering for Dr. Tran Pt seen and examined at bedside. Pt resting comfortably. No acute complaints. Fever of 101.2 overnight. Pt endorses improvement of testicular pain and swelling since starting IV antibiotics. Pt also reports resolution of abdominal pain. Denies fever, chills, chest pain, sob, abdominal pain , n/v/d, penile discharge, glans tenderness/pain. Pt states that his burning on urination has improved from a 10/10 to a 2/10. Objective - Vital Signs/Intake and Output Vital Signs (last 24 hours): Temp Pulse Resp BP Pulse Ox 98.6 F 57 L 20 143/76 96 03/10/19 23:35 03/10/19 23:35 03/10/19 23:35 03/10/19 23:35 03/10/19 23:35 Intake and Output: 03/11/19 03/11/19 06:59 18:59 Intake Total 800 Balance 800 - Medications Medications: Current Medications Acetaminophen (Tylenol 325mg Tab) 650 mg PO Q6 PRN PRN Reason: Headache Last Admin: 03/10/19 19:47 Dose: 650 mg Acyclovir (Zovirax 5% Oint) 0 gm EXT Q3H [facility] Last Admin: 03/11/19 07:54 Dose: 1 applic Dextrose (Dextrose 50% Inj) 0 ml IV STAT PRN; Protocol PRN Reason: Hypoglycemia Protocol Dextrose (Glutose 15) 0 gm PO ONCE PRN; Protocol PRN Reason: Hypoglycemia Protocol Finasteride (Proscar) 5 mg PO DAILY [facility] Last Admin: 03/10/19 09:36 Dose: 5 mg Glucagon (Glucagen Diagnostic Kit) 0 mg IM STAT PRN; Protocol PRN Reason: Hypoglycemia Protocol Guaifenesin (Mucinex La) 600 mg PO BID [facility] Last Admin: 03/10/19 17:13 Dose: 600 mg Sodium Chloride (Sodium Chloride 0.9%) 1,000 mls @ 100 mls/hr IV .Q10H [facility] Last Admin: 03/11/19 02:31 Dose: Not Given Dextrose (Dextrose 5% In Water 1000 Ml) 1,000 mls @ 0 mls/hr IV .Q0M PRN; Protocol PRN Reason: Hypoglycemia Protocol Ciprofloxacin (Cipro 400mg/200ml Dsw) 400 mg in 200 mls @ 133 mls/hr IVPB Q12H [facility]; Protocol Last Admin: 03/11/19 08:03 Dose: 133 mls/hr Insulin Human Regular (Novolin R) 0 unit SC ACHS [facility]; Protocol Last Admin: 03/11/19 07:51 Dose: 1 units Losartan Potassium (Cozaar) 25 mg PO DAILY [facility] Last Admin: 03/10/19 09:37 Dose: 25 mg Phenazopyridine HCl (Pyridium) 200 mg PO TIDPC PRN PRN Reason: Pain, moderate (4-7) Stop: 03/11/19 20:00 Pneumococcal Polyvalent Vaccine (Pneumovax 23 Vaccine) 0.5 ml IM .ONCE ONE Stop: 03/11/19 10:01 Potassium Chloride (K-Dur 20 Meq Er Tab) 20 meq PO BID [facility] Last Admin: 03/10/19 17:13 Dose: 20 meq Pseudoephedrine HCl (Sudafed Tab) 30 mg PO Q6 PRN PRN Reason: Headache Tamsulosin HCl (Flomax) 0.4 mg PO DAILY [facility] Last Admin: 03/10/19 09:36 Dose: 0.4 mg - Labs Labs: 03/11/19 07:09 03/11/19 07:09 APTT 29.7 SECONDS (21-34) 03/09/19 13:36 - Constitutional Appears: Non-toxic, No Acute Distress - Head Exam Head Exam: ATRAUMATIC, NORMAL INSPECTION - Eye Exam Eye Exam: EOMI, Normal appearance - ENT Exam ENT Exam: Mucous Membranes Moist Additional comments: (+) ulceration to the right upper lip - Respiratory Exam Respiratory Exam: Clear to Ausculation Bilateral. absent: Rales, Rhonchi, Wheezes, Respiratory Distress, Stridor - Cardiovascular Exam Cardiovascular Exam: REGULAR RHYTHM, +S1, +S2. absent: Tachycardia - GI/Abdominal Exam GI & Abdominal Exam: Soft, Normal Bowel Sounds. absent: Distended, Firm, Guarding, Rigid, Tenderness - Exam Exam: Circumcision, Scrotal Swelling (left sided), Testicular Tenderness (minimal left sided testicular tenderness on palpation). absent: Uretheral Discharge, Testicular Vertical Lie - Extremities Exam Extremities Exam: Normal Capillary Refill, Normal Inspection. absent: Calf Tenderness, Pedal Edema - Back Exam Back Exam: NORMAL INSPECTION. absent: CVA tenderness (L), CVA tenderness (R) - Neurological Exam Neurological Exam: Alert, Awake - Psychiatric Exam Psychiatric exam: Normal Affect, Normal Mood - Skin Skin Exam: Dry, Normal Color, Warm Assessment and Plan (1) Epididymitis Assessment & Plan: Testicular US shows complex bilateral hydroceles. Mild enlargment of the left epididymis and hyperemia noted in the left epididymis and left testicle. Mild left sided varicocele. Bilateral tubular ectasia of rete testis. Abdomina CT shows no evidence of nephrolithiasis or hydronehprosis. Mild to moderate circumferential urinary bladder wall thickening. Moderately enlarged prostate. Incidental left renal adenoma. Continue ciprofloxacin 400 mg IVPB q12h Pyridium 200 mg PO TIDPC PRN Tylenol PRN fever/pain Urine culture negative Blood culture negative to date HIV 1/2 Ab is negative F/u Gonorrhea/Chlamydia Status: Acute (2) Sinusitis Assessment & Plan: Sinus CT shows sinuses mocsal thickening. No evidence of air-fluid level in the sinuses. Post surgical changes suggestive of prior sinusitis surgery. Mucinex 600 mg PO BID Sudafed 30 mg PO q[address] Chance, ENT, consulted. Status: Chronic (3) HTN (hypertension) Assessment & Plan: Losartan 25 mg PO daily Normotensive, continue to monitor Status: Chronic (4) Diabetes Assessment & Plan: Home meds held Hypoglycemia protocol RISS Accucheck ACHS Status: Chronic (5) BPH (benign prostatic hyperplasia) Assessment & Plan: Finasteride 5 mg PO QD Tamsulosin 0.4 mg PO QD Status: Chronic (6) Lip ulcer Assessment & Plan: Zovirax topical Status: Acute (7) Prophylactic measure Assessment & Plan: NO indication for GI ppx Pt ambulatory, SCDs, no indication for chemical VTE Lactobacillus Case discussed with Dr. Yadira Lauren PGY1 Status: Acute <Leno May - Last Filed: 03/11/19 15:36> Objective - Vital Signs/Intake and Output Vital Signs (last 24 hours): Temp Pulse Resp BP Pulse Ox 98.0 F 57 L 20 143/77 96 03/11/19 08:22 03/11/19 08:22 03/11/19 08:22 03/11/19 08:22 03/11/19 08:22 Intake and Output: 03/11/19 03/11/19 06:59 18:59 Intake Total 800 Balance 800 - Medications Medications: Current Medications Acetaminophen (Tylenol 325mg Tab) 650 mg PO Q6 PRN PRN Reason: Headache Last Admin: 03/10/19 19:47 Dose: 650 mg Acyclovir (Zovirax 5% Oint) 0 gm EXT Q3H [facility] Last Admin: 03/11/19 13:58 Dose: 1 applic Dextrose (Dextrose 50% Inj) 0 ml IV STAT PRN; Protocol PRN Reason: Hypoglycemia Protocol Dextrose (Glutose 15) 0 gm PO ONCE PRN; Protocol PRN Reason: Hypoglycemia Protocol Finasteride (Proscar) 5 mg PO DAILY [facility] Last Admin: 03/11/19 09:50 Dose: 5 mg Glucagon (Glucagen Diagnostic Kit) 0 mg IM STAT PRN; Protocol PRN Reason: Hypoglycemia Protocol Guaifenesin (Mucinex La) 600 mg PO BID [facility] Last Admin: 03/11/19 09:50 Dose: 600 mg Sodium Chloride (Sodium Chloride 0.9%) 1,000 mls @ 100 mls/hr IV .Q10H [facility] Last Admin: 03/11/19 13:57 Dose: Not Given Dextrose (Dextrose 5% In Water 1000 Ml) 1,000 mls @ 0 mls/hr IV .Q0M PRN; Protocol PRN Reason: Hypoglycemia Protocol Ciprofloxacin (Cipro 400mg/200ml Dsw) 400 mg in 200 mls @ 133 mls/hr IVPB Q12H [facility]; Protocol Last Admin: 03/11/19 08:03 Dose: 133 mls/hr Insulin Human Regular (Novolin R) 0 unit SC ACHS [facility]; Protocol Last Admin: 03/11/19 11:53 Dose: 3 units Lactobacillus Acidophilus (Lactobacillus) 1 cap PO BID [facility] Losartan Potassium (Cozaar) 25 mg PO DAILY [facility] Last Admin: 03/11/19 09:50 Dose: 25 mg Phenazopyridine HCl (Pyridium) 200 mg PO TIDPC PRN PRN Reason: Pain, moderate (4-7) Stop: 03/11/19 20:00 Pneumococcal Polyvalent Vaccine (Pneumovax 23 Vaccine) 0.5 ml IM .ONCE ONE Stop: 03/13/19 10:01 Potassium Chloride (K-Dur 20 Meq Er Tab) 20 meq PO BID [facility] Last Admin: 03/11/19 09:51 Dose: 20 meq Pseudoephedrine HCl (Sudafed Tab) 30 mg PO Q6 PRN PRN Reason: Headache Tamsulosin HCl (Flomax) 0.4 mg PO DAILY [facility] Last Admin: 03/11/19 09:51 Dose: 0.4 mg - Labs Labs: 03/11/19 07:09 03/11/19 07:09 APTT 29.7 SECONDS (21-34) 03/09/19 13:36 Attending/Attestation - Attestation I have personally seen and examined this patient.: Yes I have fully participated in the care of the patient.: Yes I have reviewed all pertinent clinical information, including history, physical exam and plan: Yes Notes (Text): 03/11/19 15:30 Medical attending: Patient was seen and examined by me. Agree with the above note by the resident The patient reports he has had a lot of improvment of the pain espeically when walking around there is much less Left scrotal pain. Pending urine culture and also pending GC Chlymydia as well Leno May
[2019-03-11] MEDS: guaiFENesin 600 mg ER Tab PO SCH ×3 (09:50→17:31)
[2019-03-11] MEDS: Potassium Chloride 20 mEq ER Tab PO SCH ×2 (09:51→17:31)
[2019-03-11] MEDS ORDERED: Pneumococcal 23-Valent Vaccine IM ONE (10:00)
[2019-03-11] MEDS ORDERED: Potassium Chloride 20 mEq ER Tab PO ONE (12:12)
[2019-03-11] MEDS: Lactobacillus Acidophilus 500 MU Cap PO SCH (17:30)
--- NOTE | 2019-03-11 19:30 | CON ---
DATE: 03/11/2019 REASON FOR CONSULTATION: Nasal congestion. HISTORY OF PRESENT ILLNESS: This is a 58-year-old male, well known to me, who is status post sinus surgery, complains of nasal congestion, constant, mild to moderate in intensity, mostly on the right. Mild postnasal discharge and mild headache. PAST MEDICAL HISTORY: As noted in chart by me. MEDICATIONS: As noted in chart by me. ALLERGIES: NOTED IN THE CHART BY ME. PHYSICAL EXAMINATION: HEAD: Atraumatic, normocephalic. FACE: Good facial movements bilaterally. CONSTITUTIONAL: Well fed, well nourished. COMMUNICATION: Communicates well and appropriately. EXTERNAL NOSE AND EARS: No masses, no lesions, no erythema, no edema. INTERNAL NOSE: Deviated septum mildly. There is some erythema and edema of the mucosa. ORAL CAVITY AND OROPHARYNX: No masses. No lesions. No erythema. No edema. LIPS AND GUMS: No masses. No lesions. No erythema. No edema. NECK: Supple. THYROID: No thyromegaly. No goiter. LYMPH NODES: No lymphadenopathy of the neck. ASSESSMENT: 1. Sinusitis. 2. Nasal congestion. PLAN: The patient to followup as an outpatient and we will schedule for sinus surgery as an outpatient. I reviewed the CAT scan, which revealed sinusitis. Moises Chance MD
[2019-03-12] MEDS: Sodium Chloride 0.9% 1,000 ML IV SCH
[2019-03-12] MEDS: Acyclovir 5% Oint (15 gm) EXT SCH ×5 (00:44→14:35)
[2019-03-12 07:26] LABS: BASO % 0.5 % (0.0-2.0); EOS # 0.3 K/uL (0.0-0.7); EOS % 5.2 % (0.0-4.0); HEMOGLOBIN 13.5 g/dL (12.0-18.0); LYMPH # 1.1 K/uL (1.0-4.3); LYMPH % 22.8 % (20.0-40.0); MEAN CELL VOLUME 87.1 fL (80.0-94.0); MEAN CORPUSCULAR HEMOGLOBIN 31.1 pg (27.0-31.0); MEAN CORPUSCULAR HGB CONC 35.7 g/dL (33.0-37.0); MONO # 0.8 K/uL (0.0-0.8); MONO % 16.7 % (0.0-10.0); NEUT # 2.8 K/uL (1.8-7.0); NEUT % 54.8 % (50.0-75.0); NRBC % 0.2 % (0.0-2.0); RBC 4.34 Mil/uL (4.40-5.90); RED CELL DISTRIBUTION WIDTH 13.3 % (11.5-14.5); WHITE BLOOD COUNT 5.1 K/uL (4.8-10.8)
[2019-03-12 07:48] LABS: ALB/GLOB RATIO 1.2 (1.0-2.1); ALBUMIN 3.8 g/dL (3.5-5.0); ALT/SGPT 43 U/L (21-72); AST/SGOT 31 U/L (17-59); BLOOD UREA NITROGEN 5 mg/dL (9-20); CALCIUM 8.9 mg/dl (8.6-10.4); GFR NON-AFRICAN AMERICAN > 60
[2019-03-12] MEDS: (Novolin R) Insulin Human Regular 100 units/ml vial SC SCH ×2 (08:07→12:17)
[2019-03-12] MEDS: Ciprofloxacin 400mg/200ml D5W 400 MG/200 ML BAG IVPB SCH (08:08)
[2019-03-12] MEDS: Potassium Chloride 20 mEq ER Tab PO SCH (09:10)
[2019-03-12] MEDS: guaiFENesin 600 mg ER Tab PO SCH (09:10)
[2019-03-12] MEDS: Lactobacillus Acidophilus 500 MU Cap PO SCH (09:10)
--- NOTE | 2019-03-12 13:22 | CP.PCM.PN ---
Objective - Vital Signs/Intake and Output Vital Signs (last 24 hours): Temp Pulse Resp BP Pulse Ox 98.1 F 76 20 146/88 95 03/12/19 08:20 03/12/19 08:20 03/12/19 08:20 03/12/19 08:20 03/12/19 08:20 Intake and Output: 03/12/19 03/12/19 06:59 18:59 Intake Total 1400 Output Total 1600 Balance -200 - Medications Medications: Current Medications Acetaminophen (Tylenol 325mg Tab) 650 mg PO Q6 PRN PRN Reason: Headache Last Admin: 03/10/19 19:47 Dose: 650 mg Acyclovir (Zovirax 5% Oint) 0 gm EXT Q3H [facility] Last Admin: 03/12/19 11:18 Dose: 1 applic Dextrose (Dextrose 50% Inj) 0 ml IV STAT PRN; Protocol PRN Reason: Hypoglycemia Protocol Dextrose (Glutose 15) 0 gm PO ONCE PRN; Protocol PRN Reason: Hypoglycemia Protocol Doxycycline Hyclate (Doryx) 100 mg PO Q12H [facility]; Protocol Stop: 03/21/19 22:46 Last Admin: 03/12/19 13:13 Dose: 100 mg Finasteride (Proscar) 5 mg PO DAILY [facility] Last Admin: 03/12/19 09:10 Dose: 5 mg Glucagon (Glucagen Diagnostic Kit) 0 mg IM STAT PRN; Protocol PRN Reason: Hypoglycemia Protocol Guaifenesin (Mucinex La) 600 mg PO BID [facility] Last Admin: 03/12/19 09:10 Dose: 600 mg Dextrose (Dextrose 5% In Water 1000 Ml) 1,000 mls @ 0 mls/hr IV .Q0M PRN; Protocol PRN Reason: Hypoglycemia Protocol Ciprofloxacin (Cipro 400mg/200ml Dsw) 400 mg in 200 mls @ 133 mls/hr IVPB Q12H [facility]; Protocol Last Admin: 03/12/19 08:08 Dose: 133 mls/hr Insulin Human Regular (Novolin R) 0 unit SC ACHS [facility]; Protocol Last Admin: 03/12/19 12:17 Dose: 3 units Lactobacillus Acidophilus (Lactobacillus) 1 cap PO BID [facility] Last Admin: 03/12/19 09:10 Dose: 1 cap Losartan Potassium (Cozaar) 25 mg PO DAILY [facility] Last Admin: 03/12/19 09:10 Dose: 25 mg Pneumococcal Polyvalent Vaccine (Pneumovax 23 Vaccine) 0.5 ml IM .ONCE ONE Stop: 03/13/19 10:01 Potassium Chloride (K-Dur 20 Meq Er Tab) 20 meq PO BID [facility] Last Admin: 03/12/19 09:10 Dose: 20 meq Pseudoephedrine HCl (Sudafed Tab) 30 mg PO Q6 PRN PRN Reason: Headache Last Admin: 03/12/19 09:09 Dose: 30 mg Tamsulosin HCl (Flomax) 0.4 mg PO DAILY [facility] Last Admin: 03/12/19 09:10 Dose: 0.4 mg - Labs Labs: 03/12/19 07:17 03/12/19 07:17 APTT 29.7 SECONDS (21-34) 03/09/19 13:36 Assessment and Plan (1) Epididymitis Status: Acute (2) Sinusitis Status: Chronic (3) HTN (hypertension) Status: Chronic (4) Diabetes Status: Chronic (5) BPH (benign prostatic hyperplasia) Status: Chronic (6) Lip ulcer Status: Acute (7) Prophylactic measure Status: Acute
--- NOTE | 2019-03-12 15:50 | CP.PCM.DIS ---
<To Lauren - Last Filed: 03/12/19 18:26> Provider - Provider Date of Admission: 03/11/19 13:28 Attending physician: Doris Tran MD Consults: 03/10/19 09:02 Otolaryngology Consult Routine Consulting Provider: Moises Chance Consulting Physician: Moises Chance Reason for Consult: hx sinusitis s/p sinus surgery 03/10/19 11:36 Physician Consult Routine Comment: Consulting Provider: Mykel Puri Consulting Physician: Mkyel Puri Reason for Consult: painless Hematuria and bladder wall thickness Additional Comments: patient's urologist Time Spent in preparation of Discharge (in minutes): 35 Diagnosis - Discharge Diagnosis (1) Epididymitis Status: Acute (2) Sinusitis Status: Chronic (3) HTN (hypertension) Status: Chronic (4) Diabetes Status: Chronic (5) BPH (benign prostatic hyperplasia) Status: Chronic (6) Lip ulcer Status: Acute (7) Prophylactic measure Status: Acute Hospital Course - Lab Results Lab Results: Micro Results 03/10/19 01:20 Blood Blood Culture - Preliminary NO GROWTH AFTER 48 HOURS 03/10/19 01:20 Blood Blood Culture - Preliminary NO GROWTH AFTER 48 HOURS 03/09/19 00:51 Urine Random Urine Culture - Final No Growth (<1,000 CFU/ML) Most Recent Lab Values WBC 5.1 K/uL (4.8-10.8) 03/12/19 07:17 RBC 4.34 Mil/uL (4.40-5.90) L 03/12/19 07:17 Hgb 13.5 g/dL (12.0-18.0) 03/12/19 07:17 Hct 37.8 % (35.0-51.0) 03/12/19 07:17 MCV 87.1 fL (80.0-94.0) 03/12/19 07:17 MCH 31.1 pg (27.0-31.0) H 03/12/19 07:17 MCHC 35.7 g/dL (33.0-37.0) 03/12/19 07:17 RDW 13.3 % (11.5-14.5) 03/12/19 07:17 Plt Count 404 K/uL (130-400) H 03/12/19 07:17 MPV 7.0 fL (7.2-11.7) L 03/12/19 07:17 Neut % (Auto) 54.8 % (50.0-75.0) 03/12/19 07:17 Lymph % (Auto) 22.8 % (20.0-40.0) 03/12/19 07:17 [place] % (Auto) 16.7 % (0.0-10.0) H 03/12/19 07:17 Eos % (Auto) 5.2 % (0.0-4.0) H 03/12/19 07:17 Baso % (Auto) 0.5 % (0.0-2.0) 03/12/19 07:17 Neut # (Auto) 2.8 K/uL (1.8-7.0) 03/12/19 07:17 Lymph # (Auto) 1.1 K/uL (1.0-4.3) 03/12/19 07:17 [place] # (Auto) 0.8 K/uL (0.0-0.8) 03/12/19 07:17 Eos # (Auto) 0.3 K/uL (0.0-0.7) 03/12/19 07:17 Baso # (Auto) 0.0 K/uL (0.0-0.2) 03/12/19 07:17 Neutrophils % (Manual) 83 % (50-75) H 03/09/19 00:51 Lymphocytes % (Manual) 5 % (20-40) L 03/09/19 00:51 Reactive Lymphs % 2 % (0-0) H 03/09/19 00:51 Monocytes % (Manual) 8 % (0-10) 03/09/19 00:51 Eosinophils % (Manual) 2 % (0-4) 03/09/19 00:51 Platelet Estimate Normal (NORMAL) 03/09/19 00:51 APTT 29.7 SECONDS (21-34) 03/09/19 13:36 pO2 74 mm/Hg (30-55) H 03/09/19 01:05 VBG pH 7.43 (7.32-7.43) 03/09/19 01:05 VBG pCO2 35 mmHg (40-60) L 03/09/19 01:05 VBG HCO3 24.4 mmol/L 03/09/19 01:05 VBG Total CO2 24.3 mmol/L (22-28) 03/09/19 01:05 VBG O2 Sat (Calc) 97.6 % (40-65) H 03/09/19 01:05 VBG Base Excess -0.6 mmol/L (0.0-2.0) L 03/09/19 01:05 VBG Potassium 3.7 mmol/L (3.6-5.2) 03/09/19 01:05 Sodium 135.0 mmol/l (132-148) 03/09/19 01:05 Chloride 101.0 mmol/L (98-107) 03/09/19 01:05 Glucose 268 mg/dl (75-110) H 03/09/19 01:05 Lactate 2.7 mmol/L (0.7-2.1) H 03/09/19 01:05 Sodium 138 mmol/L (132-148) 03/12/19 07:17 Potassium 3.8 mmol/L (3.6-5.2) 03/12/19 07:17 Chloride 102 mmol/L (98-107) 03/12/19 07:17 Carbon Dioxide 27 mmol/L (22-30) 03/12/19 07:17 Anion Gap 13 (10-20) 03/12/19 07:17 BUN 5 mg/dL (9-20) L 03/12/19 07:17 Creatinine 0.8 mg/dL (0.8-1.5) 03/12/19 07:17 Est GFR ( Amer) > 60 03/12/19 07:17 Est GFR (Non-Af Amer) > 60 03/12/19 07:17 POC Glucose (mg/dL) 218 mg/dL (65-110) H 03/12/19 06:40 Random Glucose 203 mg/dL (75-110) H 03/12/19 07:17 Lactic Acid 0.6 mmol/L (0.7-2.1) L 03/11/19 07:09 Calcium 8.9 mg/dl (8.6-10.4) 03/12/19 07:17 Phosphorus 3.0 mg/dL (2.5-4.5) 03/12/19 07:17 Magnesium 2.1 mg/dL (1.6-2.3) 03/12/19 07:17 Total Bilirubin 0.2 mg/dL (0.2-1.3) 03/12/19 07:17 AST 31 U/L (17-59) 03/12/19 07:17 ALT 43 U/L (21-72) 03/12/19 07:17 Alkaline Phosphatase 73 U/L (38-126) 03/12/19 07:17 Total Protein 7.0 g/dL (6.3-8.3) 03/12/19 07:17 Albumin 3.8 g/dL (3.5-5.0) 03/12/19 07:17 Globulin 3.2 gm/dL (2.2-3.9) 03/12/19 07:17 Albumin/Globulin Ratio 1.2 (1.0-2.1) 03/12/19 07:17 Venous Blood Potassium 3.7 mmol/L (3.6-5.2) 03/09/19 01:05 Urine Color Yellow (YELLOW) 03/10/19 13:51 Urine Clarity Clear (Clear) 03/10/19 13:51 Urine pH 6.0 (5.0-8.0) 03/10/19 13:51 Ur Specific [place] 1.008 (1.003-1.030) 03/10/19 13:51 Urine Protein Negative mg/dL (NEGATIVE) 03/10/19 13:51 Urine Glucose (UA) 1+ mg/dL (Normal) H 03/10/19 13:51 Urine Ketones Negative mg/dL (NEGATIVE) 03/10/19 13:51 Urine Blood 2+ (NEGATIVE) H 03/10/19 13:51 Urine Nitrate Negative (NEGATIVE) 03/10/19 13:51 Urine Bilirubin Negative (NEGATIVE) 03/10/19 13:51 Urine Urobilinogen Normal mg/dL (0.2-1.0) 03/10/19 13:51 Ur Leukocyte Esterase Neg [place]/uL (Negative) 03/10/19 13:51 Urine WBC (Auto) 2 /hpf (0-5) 03/10/19 13:51 Urine RBC (Auto) 4 /hpf (0-3) H 03/10/19 13:51 Urine Bacteria Rare (<OCC) 03/10/19 13:51 HIV 1&2 Antibody Screen Negative (NEGATIVE) 03/11/19 07:09 - Hospital Course Hospital Course: On admission: 58-year-old male with a past medical history of diabetes, hypertension, and BPH presents to the hospital after reporting a fever since last Sunday. Patient states the Tmax was 102F while at home. Patient also reports body aches with nasal congestion in conjunction with the symptoms. Patient has history of sinusitis and recently completed a course of antibiotics for the infection. Patient also reports dysuria for the past couple of days as well. Patient denies any recent travel, nausea, vomiting, syncopal episodes, palpitations, chest pain or any other complaints. Hospital course: Patient presented to hospital with fever of five days and dysuria for a few days. Testicular ultrasound shows complex bilateral hydroceles, mild enlargement of the left epididymis and hyperemia noted in the left epididymis and left testicle. There was mild left sided varicocele and bilateral tubular ectasia of rete testis. Abdominal CT shows no evidence of nephrolithiasis or hydronephrosis. It showed mild to moderate circumferential urinary bladder wall thickening, moderately enlarged prostate, and incidental left renal adenoma. Patients urine and blood cultures were negative. Gonorrhea/chlamydia PCR pending. Patient received 1 dose of rocephin and started on ciprofloxacin. Patient reports improving pain and swelling. Dr. Puri, urology, consulted. Dr. Puri recommended discharge home with ciprofloxacin. Pt will also be given doxycycline to cover for chlamydia due to epididymitis and pending gonorrhea/chlamydia PCR. Patient has history of sinusitis. Sinus CT shows sinuses mucosal thickening, with no evidence of air-fluid level in the sinuses, and post-surgical changes suggestive of prior sinusitis surgery. ENT Dr. Chance consulted. Patient treated medically and is improving. Dr. Chance recommends outpatient follow-up to schedule outpatient sinus surgery. Patient had a herpetic lip ulcer, that is improving with topical acyclovir ointment. Patients hypertension, diabetes, and BPH were well controlled on home medications. This is a summary of the hospital course. Please see EMR for full details. Discharge Exam - Additional Findings Additional findings: - Constitutional Appears: Non-toxic, No Acute Distress - Head Exam Head Exam: ATRAUMATIC, NORMAL INSPECTION - Eye Exam Eye Exam: EOMI, Normal appearance - ENT Exam ENT Exam: Mucous Membranes Moist Additional comments: (+) ulceration to the right upper lip - Respiratory Exam Respiratory Exam: Clear to Ausculation Bilateral. absent: Rales, Rhonchi, Wheezes, Respiratory Distress, Stridor - Cardiovascular Exam Cardiovascular Exam: REGULAR RHYTHM, +S1, +S2. absent: Tachycardia - GI/Abdominal Exam GI & Abdominal Exam: Soft, Normal Bowel Sounds. absent: Distended, Firm, Guarding, Rigid, Tenderness - Exam Exam: Circumcision, Scrotal Swelling (left sided), Testicular Tenderness (minimal left sided testicular tenderness on palpation). absent: Uretheral Discharge, Testicular Vertical Lie - Extremities Exam Extremities Exam: Normal Capillary Refill, Normal Inspection. absent: Calf Tenderness, Pedal Edema - Back Exam Back Exam: NORMAL INSPECTION. absent: CVA tenderness (L), CVA tenderness (R) - Neurological Exam Neurological Exam: Alert, Awake - Psychiatric Exam Psychiatric exam: Normal Affect, Normal Mood - Skin Skin Exam: Dry, Normal Color, Warm Discharge Plan - Discharge Medications Prescriptions: Ciprofloxacin [Cipro] 500 mg PO Q12H #13 tab Doxycycline Hyclate [Doryx] 100 mg PO Q12H #19 cap Lactobacillus Acidophilus [Lactobacillus] 1 cap PO BID #80 cap - Follow Up Plan Condition: FAIR Disposition: HOME/ ROUTINE Instructions: Ciprofloxacin (Systemic), Urinary Tract Infection, Adult (DC), Fever, Adult (DC), Doxycycline, Lactobacillus Additional Instructions: Pt is medically stable for discharge. Pt should continue home medications as previously prescribed. Prescriptions provided Ciprofloxacin 500 mg PO twice daily, 8 am and 8 pm. #13 Doxycycline 100 mg PO twice daily, 8 am and 8 pm. #19 Lactobacillus 1 tab by mouth twice daily, 11am and 5 pm. #80 Please follow up with PMD, Urology (Dr. Puri) within 1 week of discharge home. Please follow up with Dr. Chance, ENT, as needed for your chronic sinusitis. Should symptoms worsen, please head to the nearest emergency department for further evaluation. Instruction explained to and pt, who understand and agree with discharge plan. Referrals: Moises Chance MD [Staff Provider] - Doris Tran MD [Staff Provider] - Mykel Puri MD [Staff Provider] - <Leno May - Last Filed: 03/12/19 18:43> Provider - Provider Date of Admission: 03/11/19 13:28 Attending physician: Doris Tran MD Consults: 03/10/19 09:02 Otolaryngology Consult Routine Consulting Provider: Moises Chance Consulting Physician: Moises Chance Reason for Consult: hx sinusitis s/p sinus surgery 03/10/19 11:36 Physician Consult Routine Comment: Consulting Provider: Mykel Puri Consulting Physician: Mykel Puri Reason for Consult: painless Hematuria and bladder wall thickness Additional Comments: patient's urologist Hospital Course - Lab Results Lab Results: Micro Results 03/10/19 01:20 Blood Blood Culture - Preliminary NO GROWTH AFTER 48 HOURS 03/10/19 01:20 Blood Blood Culture - Preliminary NO GROWTH AFTER 48 HOURS 03/09/19 00:51 Urine Random Urine Culture - Final No Growth (<1,000 CFU/ML) Most Recent Lab Values WBC 5.1 K/uL (4.8-10.8) 03/12/19 07:17 RBC 4.34 Mil/uL (4.40-5.90) L 03/12/19 07:17 Hgb 13.5 g/dL (12.0-18.0) 03/12/19 07:17 Hct 37.8 % (35.0-51.0) 03/12/19 07:17 MCV 87.1 fL (80.0-94.0) 03/12/19 07:17 MCH 31.1 pg (27.0-31.0) H 03/12/19 07:17 MCHC 35.7 g/dL (33.0-37.0) 03/12/19 07:17 RDW 13.3 % (11.5-14.5) 03/12/19 07:17 Plt Count 404 K/uL (130-400) H 03/12/19 07:17 MPV 7.0 fL (7.2-11.7) L 03/12/19 07:17 Neut % (Auto) 54.8 % (50.0-75.0) 03/12/19 07:17 Lymph % (Auto) 22.8 % (20.0-40.0) 03/12/19 07:17 [place] % (Auto) 16.7 % (0.0-10.0) H 03/12/19 07:17 Eos % (Auto) 5.2 % (0.0-4.0) H 03/12/19 07:17 Baso % (Auto) 0.5 % (0.0-2.0) 03/12/19 07:17 Neut # (Auto) 2.8 K/uL (1.8-7.0) 03/12/19 07:17 Lymph # (Auto) 1.1 K/uL (1.0-4.3) 03/12/19 07:17 [place] # (Auto) 0.8 K/uL (0.0-0.8) 03/12/19 07:17 Eos # (Auto) 0.3 K/uL (0.0-0.7) 03/12/19 07:17 Baso # (Auto) 0.0 K/uL (0.0-0.2) 03/12/19 07:17 Neutrophils % (Manual) 83 % (50-75) H 03/09/19 00:51 Lymphocytes % (Manual) 5 % (20-40) L 03/09/19 00:51 Reactive Lymphs % 2 % (0-0) H 03/09/19 00:51 Monocytes % (Manual) 8 % (0-10) 03/09/19 00:51 Eosinophils % (Manual) 2 % (0-4) 03/09/19 00:51 Platelet Estimate Normal (NORMAL) 03/09/19 00:51 APTT 29.7 SECONDS (21-34) 03/09/19 13:36 pO2 74 mm/Hg (30-55) H 03/09/19 01:05 VBG pH 7.43 (7.32-7.43) 03/09/19 01:05 VBG pCO2 35 mmHg (40-60) L 03/09/19 01:05 VBG HCO3 24.4 mmol/L 03/09/19 01:05 VBG Total CO2 24.3 mmol/L (22-28) 03/09/19 01:05 VBG O2 Sat (Calc) 97.6 % (40-65) H 03/09/19 01:05 VBG Base Excess -0.6 mmol/L (0.0-2.0) L 03/09/19 01:05 VBG Potassium 3.7 mmol/L (3.6-5.2) 03/09/19 01:05 Sodium 135.0 mmol/l (132-148) 03/09/19 01:05 Chloride 101.0 mmol/L (98-107) 03/09/19 01:05 Glucose 268 mg/dl (75-110) H 03/09/19 01:05 Lactate 2.7 mmol/L (0.7-2.1) H 03/09/19 01:05 Sodium 138 mmol/L (132-148) 03/12/19 07:17 Potassium 3.8 mmol/L (3.6-5.2) 03/12/19 07:17 Chloride 102 mmol/L (98-107) 03/12/19 07:17 Carbon Dioxide 27 mmol/L (22-30) 03/12/19 07:17 Anion Gap 13 (10-20) 03/12/19 07:17 BUN 5 mg/dL (9-20) L 03/12/19 07:17 Creatinine 0.8 mg/dL (0.8-1.5) 03/12/19 07:17 Est GFR ( Amer) > 60 03/12/19 07:17 Est GFR (Non-Af Amer) > 60 03/12/19 07:17 POC Glucose (mg/dL) 266 mg/dL (65-110) H 03/12/19 16:09 Random Glucose 203 mg/dL (75-110) H 03/12/19 07:17 Lactic Acid 0.6 mmol/L (0.7-2.1) L 03/11/19 07:09 Calcium 8.9 mg/dl (8.6-10.4) 03/12/19 07:17 Phosphorus 3.0 mg/dL (2.5-4.5) 03/12/19 07:17 Magnesium 2.1 mg/dL (1.6-2.3) 03/12/19 07:17 Total Bilirubin 0.2 mg/dL (0.2-1.3) 03/12/19 07:17 AST 31 U/L (17-59) 03/12/19 07:17 ALT 43 U/L (21-72) 03/12/19 07:17 Alkaline Phosphatase 73 U/L (38-126) 03/12/19 07:17 Total Protein 7.0 g/dL (6.3-8.3) 03/12/19 07:17 Albumin 3.8 g/dL (3.5-5.0) 03/12/19 07:17 Globulin 3.2 gm/dL (2.2-3.9) 03/12/19 07:17 Albumin/Globulin Ratio 1.2 (1.0-2.1) 03/12/19 07:17 Venous Blood Potassium 3.7 mmol/L (3.6-5.2) 03/09/19 01:05 Urine Color Yellow (YELLOW) 03/10/19 13:51 Urine Clarity Clear (Clear) 03/10/19 13:51 Urine pH 6.0 (5.0-8.0) 03/10/19 13:51 Ur Specific [place] 1.008 (1.003-1.030) 03/10/19 13:51 Urine Protein Negative mg/dL (NEGATIVE) 03/10/19 13:51 Urine Glucose (UA) 1+ mg/dL (Normal) H 03/10/19 13:51 Urine Ketones Negative mg/dL (NEGATIVE) 03/10/19 13:51 Urine Blood 2+ (NEGATIVE) H 03/10/19 13:51 Urine Nitrate Negative (NEGATIVE) 03/10/19 13:51 Urine Bilirubin Negative (NEGATIVE) 03/10/19 13:51 Urine Urobilinogen Normal mg/dL (0.2-1.0) 03/10/19 13:51 Ur Leukocyte Esterase Neg [place]/uL (Negative) 03/10/19 13:51 Urine WBC (Auto) 2 /hpf (0-5) 03/10/19 13:51 Urine RBC (Auto) 4 /hpf (0-3) H 03/10/19 13:51 Urine Bacteria Rare (<OCC) 03/10/19 13:51 HIV 1&2 Antibody Screen Negative (NEGATIVE) 03/11/19 07:09 Attending/Attestation - Attestation I have personally seen and examined this patient.: Yes I have fully participated in the care of the patient.: Yes I have reviewed all pertinent clinical information, including history, physical exam and plan: Yes Notes (Text): 03/12/19 18:37 Medical attending: Patient was seen and examined by me. Agree with the above note by the resident The patient was not in any acute distress when we came and saw him. His left scrotal pain is again decreased from before. As mentioned previously he has been getting IV cipro and previously IM rocpehin. He is also on PO Doxycylin. We tested for GC Chymydia as well. The patient was seen earlier today by urologist and was given the ok for dischar ge as he was eager to go. He will need to take the PO abx as well He was given instructions to follow up with his primary physician as well as with the urologist Leno May
[2019-03-12 16:24] VITALS: BP 134/74; PULSE 77; RESP 18; TEMP 97.4; O2SAT 97
[2019-03-13] MEDS ORDERED: Pneumococcal 23-Valent Vaccine IM ONE (10:00)
== END 2019-03-12 18:13 | disposition home or self-care (01) | DRG 350 ==
LOC: C.ER 23:30 → C.6T 03-09 02:06 → OBSVTOIN 03-11 13:28
PROVIDERS: ADMIT Internal Medicine; ATTEND Internal Medicine
DX: N45.1 Epididymitis (principal); I86.1 Scrotal varices; N43.3 Hydrocele, unspecified; E10.9 Type 1 diabetes mellitus without complications; N40.0 Benign prostatic hyperplasia without lower urinary tract symptoms; I10 Essential (primary) hypertension; E78.00 Pure hypercholesterolemia, unspecified; Z79.4 Long term (current) use of insulin; Z79.899 Other long term (current) drug therapy